=== PATIENT | male | born 1965 | race Two or more races ===

== ENCOUNTER 2017-07-16 13:35 | Day surgery (SDC) | payer OTHER ==
[2017-07-16] MEDS ORDERED: FENTAnyl 50 MCG/ML VIAL (15:30)
[2017-07-16] MEDS ORDERED: MIDAZOLAM 1 MG/ML 2 ML INJ ×3 (15:30)
== END 2017-07-16 15:48 | disposition home or self-care (01) ==
LOC: GIL 13:35
DX: Z12.11 Encounter for screening for malignant neoplasm of colon (principal); D12.4 Benign neoplasm of descending colon; K57.90 Diverticulosis of intestine, part unspecified, without perforation or abscess without bleeding; K64.8 Other hemorrhoids
CPT/HCPCS: 45380; 88305